=== PATIENT | female | born 1965 | race Caucasian/White ===

== ENCOUNTER 2019-05-23 12:11 | Inpatient (IN) | payer BC, OTHER ==
[~2019-05-23] VITALS: Ht 172.7 cm; Wt 98.9 kg
--- NOTE | ~2019-05-23 | HEMODYNAMI ---
PATIENT:PADMINI CHAVEZ MEDICAL RECORD: [id number] : 67 [id number] ADMISSION DATE: 05/23/19 Generatedon:05/24/201910:25 Patient name: PADMINI CAHVEZ Patient #: [id number] SSN: [id number] : 1965 Date of study: 05/24/2019 Page: Of Hemodynamic Procedure Report Patient Data Patient Demographics Procedure consent was obtained First Name: PADMINI Gender: Female Last Name: KATHY : 1965 Middle Initial: ALPHONSE Age: 53 year(s) Patient #: [id number] Race: SSN: [id number] Additional ID: [id number] Contact details Address: [address] [place] [address] [place] State: [place] [facility] [place]: [address] Past Medical History Allergies Allergen Reaction Date Comments Reported Other allergy 05/24/2019 jaimeen/bernie Admission Admission Data Admission Date: 05/23/2019 Admission Time: 19:04 Arrival Date: 05/24/2019 Arrival Time: 0:00 Admit Source: Other Insurance Payor: Private Room #: D.2137 health insurance [facility] #: [id number] Height (in.): 68.11 BSA: 2.12 (m2) Height (cm.): 173 BMI: 33.11 (kg/m2) Weight (lbs.): 218.46 Weight (kg.): 99.09 Lab Results Lab Result Date: 05/24/2019 Lab Result Time: 0:00 Biochemistry Name Units Result Min Max BUN mg/dl 17 --(---*)-- 7 18 Creatinine mg/dl 0.8 --(-*--)-- 0.6 1.3 eGFR ml/min 79.02208 *-(----)-- 90 120 NONAFRICAN CBC Name Units Result Min Max Hematocrit % 49 --(--*-)-- 42 54 Hemoglobin g/dl 16.7 --(---*)-- 13.5 17.5 Procedure Procedure Types Cath Procedure Diagnostic Procedure C [facility] w/Coronaries Procedure Description Procedure Date Procedure Date: 05/24/2019 Procedure Start Time: 10:04 Procedure End Time: 10:23 Procedure Staff Name Function Jasson Abreu MD Performing Physician Gabriela Middleton RT Monitor Lizeth Zarate RT Scrub Nolberto Angel RN Nurse Procedure Data Cath Procedure Fluoroscopy Diagnostic fluoroscopy Total fluoroscopy Time: 0 time: 0 min min Diagnostic fluoroscopy Total fluoroscopy dose: 547 dose: 547 mGy mGy Contrast Material Contrast Material Type Amount (ml) Isovue 300 81 Entry Location Entry Primary Successful Side Size Upsize Upsize Entry Closure Succes sful Closure Location (Fr) 1 (Fr) 2 (Fr) Remarks Device Remarks Femoral Right 5 Fr Exoseal artery Estimated blood loss: 5 ml Diagnostic catheters Device Type Used For End Catheter Placement MULTIPACK JL 4.0 5Fr Left Coronary catheter Angiography MULTIPACK 3DRC 5Fr Right Coronary catheter Angiography DIAGNOSTIC AR MOD 5Fr Procedure Catheter ([id number]) MULTIPACK Pigtail 5 Fr LV Angiography catheter Procedure Complications No complications Procedure Medications Medication Administration Route Dosage 0.9% NaCl I.V. 100 ml/hr Oxygen etCO2 Nasal cannula 2 l/min Heparin Flush Bag added to field 2 bags (1000units/500ml NS) Lidocaine 2% added to field 20 Benadryl I.V. 50 mg Versed I.V. 2 mg Fentanyl I.V. 100 mcg Hemodynamics Rest BSA: 2.12 (m2) HGB: 16.7 (g/dl) O2 Consumption: Estimated: 231.81 (ml/min) O2 Co nsumption indexed: Estimated:109.34 (ml/min/m) Heart Rate: 102 (bpm) Pressure Samples Time Site Value (mmHg) Purpose Heart Use Rate(bpm) 10:12 LV 139/19,19 Snapshot 102 10:12 AO 144/81(107) Pullback 102 10:12 LV 127/21,13 Pullback 102 Gradients Valve Time Site 1 Site 2 Mean SEP/DFP Peak To Heart Use (mmHg) (sec/min) Peak Rate (mmHg) (bpm) Aortic 10:12 LV AO 0 15 0 102 127/21,13 144/81(107) Calculations Valve P-P Mean Valve Index Valve Source Name Gradient Area Flow (cm2) Aortic 0 0 0 0 Snapshots Pre Cath Intra NCS Post Cath Vital Signs Time Heart Resp SPO2 etCO2 NIBP (mmHg) Rhythm Pain Sedation Rate (ipm) (%) (mmHg) Status Level (bpm) 9:57:37 99 23 91 0 164/94(135) NSR 0 (11) 10(A) , No pain 10:02:02 104 25 93 22.5 146/102(129) NSR 0 (11) 10(A) , No pain 10:06:20 98 22 94 27 156/85(115) NSR 0 (11) 9(A) , No pain 10:10:34 102 18 92 27 150/96(120) NSR 0 (11) 9(A) , No pain 10:21:39 91 30 149/93(134) NSR 0 (11) 9(A) , No pain Medications Time Medication Route Dose Verified Delivered Reason Notes Eff ectiveness by by 10:03:03 0.9% NaCl I.V. 100 Nolberto Nolberto Per ml/hr Jeanne Angel physician RN RN 10:04:01 Oxygen etCO2 2 Nolberto Nolberto for low 02 Nasal l/min Lorigan Lorigan sats cannula RN RN 10:04:11 Heparin Flush added 2 Nolberto Nolberto used for Bag to bags Lorigan Jeanne procedure (1000units/500ml RN RN NS) 10:04:20 Lidocaine 2% added 20ml Nolberto Nolberto for local to vial Lorigan Lorigan anesthetic field RN RN 10:04:31 Benadryl I.V. 50 mg Nolberto Nolberto Per Jeanne Angel physician RN RN 10:04:50 Versed I.V. 2 mg Nolberto Nolberto for Lorigan Lorigan sedation RN RN 10:05:36 Fentanyl I.V. 100 Nolberto Nolberto for mcg Lorigan Lorigan sedation RN shell reprint operator Log Time Note 9:27:23 Informed consent obtained and on chart 9:27:43 Nolberto Angel RN sent for patient. Start room use. 9:27:45 Procedure Status Elective Heart Cath (OP). 9:27:47 Time tracking: Regular hours (M-F 7:00 - 5:00) 9:27:51 Plan of Care:Hemodynamics will remain stable., Cardiac rhythm will remain stable., Comfort level will be maintained., Respiratory function will remain adequate., Patient/ family verbilizes understanding of procedure., Procedure tolerated without complication., Recovers from procedure without complications.. 9:30:08 Arrival Date: 05/24/2019 12:00:00 AM 9:30:11 Admit Source: Other 9:30:15 Insurance Payor : Private health insurance 9:30:46 Patient Height : 68.11 inches 9:30:51 Patient Weight : 218.46 lbs 9::46 Lab Result : Hemoglobin 16.7 g/dl 9::46 Lab Result : eGFR NONAFRICAN 79.76753 ml/min 9::46 Lab Result : BUN 17 mg/dl 9::46 Lab Result : Creatinine 0.8 mg/dl ::46 Lab Result : Hematocrit 49 % 9:32:53 Procedure type changed to Cath procedure, Diagnostic procedure, LHC, LH C w/Coronaries 9:32:56 Diagnostic Cath Status : Elective 9:38:34 Lab results completed and on chart. 9:39:32 Patient received from Med II to CCL 1 Alert and oriented. Tansferred to table in Supine position. 9:39:35 Warm blankets applied, and mac hugger turned on for patient comfort. 9:39:36 Correct patient and procedure confirmed by team. 9:39:38 ECG and BP/O2 sat monitors applied to patient. 9:56:23 Vital chart was started 9:56:24 Baseline sample Acquired. 9:56:31 Rhythm: sinus tachycardia 9:56:38 Full Disclosure recording started 9:56:39 - 9:57:19 H&P Date Dictated: 05/24/2019 Within 30 days and on chart.. 9:57:21 Pre-procedure instructions explained to patient. 9:57:22 Pre-op teaching completed and patient verbalized understanding. 9:57:26 Family in patients room. 9:57:30 Patient NPO since Midnight. 9:57:50 Patient allergic to Other allergypcn/codiene 9:58:58 Is the patient allergic to Iodine/contrast media? No. 9:59:09 Is patient on blood thinner?No 9:59:11 Patient diabetic? No. 10:00:22 ----Pre-sedation anethsthesia assessment.---- 10:00:29 Previous problem with sedation/anesthesia? No ? 10:00:32 Snore? Yes 10:00:34 Sleep apnea? Yes 10:00:36 Deviated septum? No 10:00:38 Opens mouth fully? Yes 10:00:42 Sticks out tongue? Yes 10:01:07 Airway obstruction? Yes copd/wears a cpap at home 10:01:20 Dentures? No ? 10:01:28 Pre procedure: right dorsailis pedis pulse 2+ Normal; easily identifiable; not easily obliterated 10:01:45 Patient pain scale 5/10 ?. 10:01:57 IV patent on arrival in subclavian with 0.9% NaCl at [facility]. 10:02:11 Right groin area was prepped with chlora-prep and draped in sterile fashion 10:02:14 Alarms reviewed by R. N. 10:02:15 Sharps counted by scrub and verified by R.N. 10:02:18 Physician arrived 10:02:20 --------ALL STOP TIME OUT------ 10:02:23 Zero performed for pressure channel P1 10:03:03 0.9% NaCl 100 ml/hr I.V. was administered by Nolberto Angel RN; Per physician; Verbal order read back and verified. 10:03:25 Final Timeout: patient, procedure, and site verified with staff and physician. All members of the team are in agreement. 10:03:28 Right groin site verified by team. 10:03:34 Fire Safety Assessment: A--An alcohol-based skin anteseptic being used preoperatively., C--Open oxygen or nitrous oxide is being used., D--An ESU, laser, or fiber-optic light is being used. 10:03:40 Physical assessment completed. ASA score P 2 - A patient with mild systemic disease as per Jasson Abreu MD. 10:03:57 1) 90+ Normal kidney functon but urine findings or structural abnormalities or genetic trait point to kidney disease. 10:04:01 Oxygen 2 l/min etCO2 Nasal cannula was administered by Nolberto Angel RN; for low 02 sats; Verbal order read back and verified. 10:04:03 Maximum allowable contrast dose (3.7 X eGFR X 0.75)225 ml. 10:04:11 Heparin Flush Bag (1000units/500ml NS) 2 bags added to field was administered by Nolberto Angel RN; used for procedure; Verbal order read back and verified. 10:04:11 Sedation plan: IV Moderate Sedation Medication:Versed, Fentanyl 10:04:20 Lidocaine 2% 20ml vial added to field was administered by Nolberto Angel RN; for local anesthetic; Verbal order read back and verified. 10:04:21 Use device set Femoral Dx 10:04:23 ACIST Syringe (84554) opened to sterile field. 10:04:24 Bag Decanter (2002S) opened to sterile field. 10:04:25 Medline Cath Pack ([id number]) opened to sterile field. 10:04:26 ACIST Hand Control (26693) opened to sterile field. 10:04:28 ACIST Manifold (75229) opened to sterile field. 10:04:29 DIAGNOSTIC Multipack 5Fr catheter set (WC5621) opened to sterile field. 10:04:30 Tegaderm 4 x 4 (1626W) opened to sterile field. 10:04:31 Benadryl 50 mg I.V. was administered by Nolberto Angel RN; Per physician; Verbal order read back and verified. 10:04:31 SHEATH 5FR York (XYG488) opened to sterile field. 10:04:32 EMERALD Guide Wire (495-560) opened to sterile field. 10:04:41 Procedure started. 10:04:49 Local anesthetic to right femoral artery with Lidocaine 2% by Jasson Hilton MD.INITIAL ACCESS ONLY 10:04:50 Versed 2 mg I.V. was administered by Nolberto Angel RN; for sedation; Verbal order read back and verified. 10:05:36 Fentanyl 100 mcg I.V. was administered by Nolberto Angel RN; for sedation; Verbal order read back and verified. 10:05:49 A 5 Fr sheath was inserted into the Right Femoral artery 10:06:30 A MULTIPACK JL 4.0 5Fr catheter was advanced over the wire and used for Left Coronary Angiography. 10:06:37 LCA angiography performed. 10:06:44 Injector settings: Ml/sec: 3, Volume: 6, 10:07:33 Catheter removed. 10:08:04 A MULTIPACK 3DRC 5Fr catheter was advanced over the wire and used for Right Coronary Angiography. 10:09:34 Catheter removed. 10:10:03 A DIAGNOSTIC AR MOD 5Fr Catheter (392222M) was advanced over the wire and used for Procedure. 10:10:48 RCA angiography performed. 10:10:52 Injector settings: Ml/sec: 3, Volume: 6, 10:10:59 Catheter removed. 10:11:07 A MULTIPACK Pigtail 5 Fr catheter was advanced over the wire and used for LV Angiography. 10:11:17 LV gram done using LEONE 10:12:15 LV hemodynamics recorded. 10:12:26 EF : 20 % 10:12:35 Catheter removed. 10:12:43 EXOSEAL 5Fr (EX500) opened to sterile field. 10:13:09 Sheath removed intact; hemostasis achieved with Exoseal to the Right Femoral artery. 10:13:47 Procedure ended.(Physican Out) 10:14:05 Contrast amount:Isovue 300 81ml. 10:14:08 Maximum allowable dose exceeded? No. 10:15:56 Fluoroscopy time 00.00 minutes. 10:16:03 Fluoroscopy dose: 547 mGy 10:16:03 Flurop Dose total: 547 10:16:13 Dose Area Product 25088 mGy/cm. 10:16:28 Sharps counted by scrub and verified by R.N. 10:16:32 Insertion/operative site no bleeding no hematoma. 10:16:38 Post-op/insertion site Right Femoral artery dressed using a 4 x 4 and Tegaderm. 10:16:44 Post right femoral artery:stable 10:16:49 Post Procedure Pulses reassessed and unchanged 10:17:07 Post-procedure physical assessment completed. ASA score P 2 - A patient with mild systemic disease as per Jasson Abreu MD. 10:17:15 Post procedure rhythm: unchanged. 10:17:20 Estimated blood loss: 5 ml 10:17:22 Post procedure instruction explained to patient.Patient verbalizes understanding. 10:17:24 Patient needs reinforcement of post procedure teaching. 10:17:50 Procedure and supply charges have been captured, reviewed, submitted an d are correct. 10:22:23 Risk of Mortality: 0.2 10:22:27 Risk of blood transfusion: 0.6 10:22:32 Risk of ALDO: 0.8 10:22:52 Procedure Complication : No complications 10:22:57 Vital chart was stopped 10:23:06 [facility] Findings: mild to moderate CAD (<70%) 10:23:09 Operative report dictated upon procedure completion. 10:23:12 See physician's report for complete and final results. 10:23:25 Report given to [facility] II. 10:23:31 Patient transfered to Med II with Bed. 10:23:36 Procedure ended. 10:23:36 Full Disclosure recording stopped 10:23:40 End room use (Document Last) Device Usage Item Name Manufacture Quantity Catalog Hospital Part Current Minimal L ot# / Number Charge Number Stock Stock Serial# Code ACIST Acist 1 30526 [id number] 431072 184776 20 Syringe Medical (07863) Systems Inc Bag Microtek 1 2001S 686784 04444 709278 5 Decanter Medical Inc. () Medline Medline 1 [id number] 320984 37313 150316 5 Cath Pack ([id number]) ACIST Hand Acist 1 86581 798396 653595 023305 5 Control Medical (07861) Systems Inc ACIST Acist 1 72950 894182 405503 075716 5 Manifold Medical (50834) Systems Inc DIAGNOSTIC Cardinal 1 EE0396 829012 86989 242691 30 Multipack Health 5Fr catheter set (MB8808) Tegaderm 4 3M 1 1626W 170470 210134 647121 5 x 4 (1626W) SHEATH 5FR Terumo 1 QBV713 841969 666716 890787 5 York (WJK138) EMERALD Cardinal 1 502-455 851748 930537 620237 5 Guide Wire [facility] (502455) MULTIPACK Cardinal 1 064408 5 JL 4.0 5Fr Health catheter MULTIPACK Cardinal 1 936656 5 3DRC 5Fr Health catheter DIAGNOSTIC Cardinal 1 [id number] 321433 556627 599290 15 AR MOD 5Fr Health Catheter (510829M) MULTIPACK Cardinal 1 947799 5 Pigtail 5 Health Fr catheter EXOSEAL 5Fr Cardinal 1 EX500 139892 066542 454466 10 (EX500) Health Signature Audit Lynn Stage Time Signature Unsigned Intra-Procedure 05/24/2019 Gabriela 10:24:24 AM Kane RT(R) (CV) Intra-Procedure 05/24/2019 Nolberto 10:24:56 AM Jeanne MACHADO Intra-Procedure 05/24/2019 Jasson Blanco 10:25:54 AM Yobani [place]OWN [place] [id number] [place] [id number]
[2019-05-23] MEDS ORDERED: ALDACTONE25 MG PO (12:32)
[2019-05-23] MEDS ORDERED: HYDROCHLOROTHIA25 MG PO (12:32)
[2019-05-23] MEDS ORDERED: COREG 3.1253.125 MG PO (12:33)
[2019-05-23] MEDS ORDERED: ALBUTEROL SULF8.5 GM (12:34)
[2019-05-23] MEDS ORDERED: ADVAIR HFA 45/212 GM INH (12:34)
[2019-05-23 13:09] LABS: BASOPHILS 0.3 % (0-2); EOSINOPHILS 2.9 % (0-7); HEMATOCRIT 50.5 % (36.0-48.0); HEMOGLOBIN 17.4 g/dL (12-16); IMMATURE GRANULOCYTES 0.5 % (0-5); LYMPHOCYTES 20.1 % (15-50); MCH 33.3 pg (26.0-34.0); MCHC 34.5 g/dL (31.0-37.0); MCV 96.6 fL (80.0-100.0); MEAN PLATELET VOLUME 10.6 fL (7.4-10.4); MONOCYTES 5.7 % (2-11); NEUTROPHILS 70.5 % (40-80); PLATELET COUNT 181 10x3/uL (130-400); RBC 5.23 10x6/uL (4.00-5.40); RDW 13.2 % (11.5-14.5); WBC 14.8 10x3/uL (4.8-10.8)
[2019-05-23 13:22] LABS: CALC OSMOLALITY 272 mosm/kg (275-300); CALCIUM 8.5 mg/dL (8.5-10.1); CARBON DIOXIDE 24.4 mmol/L (21.0-32.0); CHLORIDE - SERUM 102 mmol/L (98-107); CREATININE - SERUM 0.5 mg/dL (0.6-1.3); GLUCOSE 139 mg/dL (74-106); POTASSIUM - SERUM 3.5 mmol/L (3.5-5.1); SODIUM 136 mmol/L (136-145); UREA NITROGEN 11 mg/dL (7-18); eGFR NON AFRICAN AMERICAN > 90 mL/min (90-120)
[2019-05-23 13:37] LABS: ALBUMIN 2.9 g/dL (3.4-5.0); ALKALINE PHOSPHATASE 100 U/L (46-116); ALT (SGPT) 34 U/L (10-68); APTT 25.8 SECONDS (22.8-39.4); BILIRUBIN - TOTAL 1.47 mg/dL (0.2-1.3); INR 1.03 (0.85-1.17); LIPASE 74 U/L (73-393); MAGNESIUM - SERUM 1.8 mg/dL (1.8-2.4); PRO BNP 23821 pg/mL (0-125); PROTEIN - SERUM 7.6 g/dL (6.4-8.2)
[2019-05-23 13:39] LABS: D-DIMER-QUANTITATIVE 3.19 ug/mLFEU (0.20-0.54)
[2019-05-23 13:42] LABS: TROPONIN-I 0.071 ng/mL (0.000-0.060)
--- NOTE | 2019-05-23 13:42 | NUR ---
CRITICAL LAB TROPONIN 0.071; PRBNP [id number] FROM ABDELRAHMAN
--- NOTE | 2019-05-23 16:10 | NUR ---
EDP DIPIKA AT BEDSIDE ATTEMPTING TO START IV.
[2019-05-23 16:11] VITALS: BP 176/127
--- NOTE | 2019-05-23 16:12 | NUR ---
PT PROVIDED WITH SANDWICH TRAY AND WATER.
--- NOTE | 2019-05-23 16:57 | NUR ---
PT'S DAUGHTER, LARRY DUARTE, PHONE NUMBER [phone]
--- NOTE | 2019-05-23 17:08 | NUR ---
DR. AVALOS AT BEDSIDE FOR CENTRAL LINE PLACEMENT.
--- NOTE | 2019-05-23 17:15 | NUR ---
CENTRAL LINE IN PLACE BY DR AVALOS. ALCOHOL CAPS IN PLACE X3, ALL LUMENS CLAMPED. AREA AROUND DRESSING CLEANED. PT TOLERATED WELL.
[2019-05-23 18:06] VITALS: BP 180/123
[2019-05-23 18:11] LABS: ERYTHROCYTE SEDIMENTATION RATE 15 mm/hr (0-30)
[2019-05-23 19:46] LABS: APPEARANCE CLEAR (CLEAR); COLOR YELLOW (YELLOW)
[2019-05-23 19:47] LABS: BILIRUBIN NEGATIVE (NEGATIVE); GLUCOSE NEGATIVE (NEGATIVE); KETONE NEGATIVE (NEGATIVE); NITRITE NEGATIVE (NEGATIVE); PROTEIN 1+ mg/dL (NEGATIVE); SPECIFIC GRAVITY 1.005 (1.005-1.020); UROBILINOGEN NORMAL (NORMAL)
[2019-05-23 19:55] LABS: UDS - AMPHET POSITIVE QUAL (NEGATIVE); UDS - BARB NEGATIVE QUAL (NEGATIVE); UDS - BENZO NEGATIVE QUAL (NEGATIVE); UDS - COCAINE NEGATIVE QUAL (NEGATIVE); UDS - OPIATE POSITIVE QUAL (NEGATIVE); UDS - PCP NEGATIVE QUAL (NEGATIVE); UDS - THC POSITIVE QUAL (NEGATIVE)
--- NOTE | 2019-05-23 20:08 | NUR ---
PATIENT RECEIVED TO ROOM 2137 @ 1900 VIA STRETCHER. PATIENT IS AAOX4, VSS. QUICK START, MED REC, ADULT HX COMPLETE. U/A COLLECTED AND SENT TO LAB. CL IN REACH, BED LOCKED AND LOWERED. WILL CTM.
[2019-05-23 22:06] VITALS: BP 194/103; BMI 33.2
--- NOTE | 2019-05-23 22:14 | NUR ---
JOURNEYMAN PAINTER ASSESSMENT COMPLETED. PT STATES HAVING CP /. O2 2LNC PLACED. LTLSC SL. LUNGS DIMINISHED IN BASES BILAT WITH COARSE RHONCHI NOTED TO UPPER LOBES. ALERT AND ORIENTED TO PERSON, PLACE ANDTIME. HOLGUIN. SR PER CM HR 94. CALL LIGHT WITHIN REACH. PT'S NURSE INFOMRED OF C/O CP.
[2019-05-24] VITALS: BP 160/93
--- NOTE | 2019-05-24 01:46 | NUR ---
PT C/O PAIN /10, PRN MORPHINE ADMINISTERED PER ORDERS.
[2019-05-24 04:00] VITALS: BP 189/117
--- NOTE | 2019-05-24 04:44 | NUR ---
PATIENT BP 189/117 HR 110, PRN APRESOLINE ADMINISTERED PER ORDERS. WILL CTM.
[2019-05-24 05:50] VITALS: BP 189/92
[2019-05-24 05:52] LABS: BASOPHILS 0.3 % (0-2); EOSINOPHILS 2.8 % (0-7); HEMOGLOBIN 16.7 g/dL (12-16); IMMATURE GRANULOCYTES 0.3 % (0-5); LYMPHOCYTES 21.1 % (15-50); MCH 32.9 pg (26.0-34.0); MCHC 34.1 g/dL (31.0-37.0); MCV 96.6 fL (80.0-100.0); MEAN PLATELET VOLUME 11.1 fL (7.4-10.4); MONOCYTES 8.8 % (2-11); NEUTROPHILS 66.7 % (40-80); PLATELET COUNT 180 10x3/uL (130-400); RBC 5.07 10x6/uL (4.00-5.40); RDW 13.5 % (11.5-14.5); WBC 14.8 10x3/uL (4.8-10.8)
[2019-05-24 06:22] LABS: ALBUMIN 2.7 g/dL (3.4-5.0); ALKALINE PHOSPHATASE 92 U/L (46-116); ALT (SGPT) 34 U/L (10-68); BILIRUBIN - TOTAL 1.57 mg/dL (0.2-1.3); CALCIUM 9.2 mg/dL (8.5-10.1); CARBON DIOXIDE 27.3 mmol/L (21.0-32.0); CHLORIDE - SERUM 99 mmol/L (98-107); GLUCOSE 121 mg/dL (74-106); POTASSIUM - SERUM 3.8 mmol/L (3.5-5.1); PRO BNP 21817 pg/mL (0-125); PROTEIN - SERUM 7.1 g/dL (6.4-8.2); SODIUM 135 mmol/L (136-145); eGFR NON AFRICAN AMERICAN 80 mL/min (90-120)
[2019-05-24 06:24] LABS: CALC OSMOLALITY 272 mosm/kg (275-300); CREATININE - SERUM 0.8 mg/dL (0.6-1.3); UREA NITROGEN 17 mg/dL (7-18)
--- NOTE | 2019-05-24 08:20 | NUR ---
PT AWAKE, AXO. RR EVEN AND UNLABORED. STANDBY ASSIST TO RESTROOM. DENIES NEEDS OR PAIN AT THIS TIME. BED IN LOWEST POSITION. CALL LIGHT WITHIN REACH. WILL CONTINUE TO MONITOR.
[2019-05-24 08:27] VITALS: BP 136/59
[2019-05-24 09:20] LABS: LDL-HDL RATIO 1.7 ratio (1.5-3.5)
--- NOTE | 2019-05-24 09:33 | NUR ---
PT LEFT FOR CONCAVER VIA BED.
--- NOTE | 2019-05-24 10:35 | NUR ---
PT BACK FROM SCALE AND SKIP CAR OPERATOR. DRESSING TO RIGHT GROIN, CDI. PT SLEEPING, RR EVEN AND UNLABORED. VSS AT THIS TIME. FAMILY MEMEBER PRESENT. EDUCATION ON POST OP PRECEDURES GIVEN. WILL CONTINUE TO MONITOR.
[2019-05-24 15:11] VITALS: BMI 33.1
--- NOTE | 2019-05-24 17:04 | MORECARE ---
CASE MANAGEMENT DISCHARGE SUMMARY PATIENT: PADMINI CHAVEZ UNIT: [id number] ADM DATE: 05/23/19 AGE: 53 : 67 SEX: F ROOM/BED: D.7976 AUTHOR: MORALES EDMONDS PHYSICIAN: REFERRING PHYSICIAN: EZEKIEL RUIZ MD DATE OF SERVICE: 05/24/19 Discharge Plan Patient Name: PADMINI CHAVEZ Facility: [facility]:[place] : 1965 Planned Disposition: Home Anticipated Discharge Date: 05/24/19 Discharge Date: Expected LOS: 1 Initial Reviewer: [email or web address] Initial Review Date: 05/24/2019 Generated: 05/24/19 6:03 pm DCPIA - Discharge Planning Initial Assessment Updated by [email or web address]: Nikolai Eugene on 05/24/19 5:01 pm * Is the patient Alert and Oriented? Yes * How many steps to enter\exit or inside your home? * PCP DR. ROXANA RAMEY IN [place], [place] * Pharmacy [facility][1] * Preadmission Environment Home with Family * ADLs Independent * Equipment CPAP Nebulizer Other * Other Equipment PNEUMATIC LEG COMPRESSION DEVICE NO MEDICAL EQUIPMENT PROVIDER PREFERENCE * List name and contact numbers for known caregivers / representatives who currently or will assist patient after discharge: LARRY DUARTE, DTR,[phone] * Verbal permission to speak to the caregivers and representatives has been obtained from the patient. N/A * Community resources currently utilized Home Health * Please name any agencies selected above. [facility], IN [place] - FOR ASSISTANCE WITH LEG COMPRESSION * Additional services required to return to the preadmission environment? No * Can the patient safely return to the preadmission environment? Yes * Has this patient been hospitalized within the prior 30 days at any hospital? No Patient Name: PADMINI CHAVEZ Page 77520 at 1704 All edits/amendments must be made on the electronic document DICTATION DATE: 05/24/191703 SPARERIBS TRIMMER: RENETTA 05/24/191703 RPT#: [id number] DC DATE: STATUS: ADM IN [facility] [address] [place] [address] END OF REPORT
--- NOTE | 2019-05-24 17:12 | MORECARE ---
CASE MANAGEMENT DISCHARGE SUMMARY PATIENT: PADMINI CHAVEZ UNIT: [id number] ADM DATE: 05/23/19 AGE: 53 : 67 SEX: F ROOM/BED: D.7966 AUTHOR: GREY,DOC PHYSICIAN: REFERRING PHYSICIAN: EZEKIEL RUIZ MD DATE OF SERVICE: 05/24/19 Discharge Plan Patient Name: PADMINI CHAVEZ Facility: [facility]:[place] : 1965 Planned Disposition: Home Anticipated Discharge Date: 05/24/19 Discharge Date: Expected LOS: 1 Initial Reviewer: [email or web address] Initial Review Date: 05/24/2019 Generated: 05/24/19 6:11 pm Comments DCP- Discharge Planning Updated by [email or web address]: Nikolai Eugene on 05/24/19 4:[address] Patient Name: PADMINI CHAVEZ Admission Status: ER Accout number: [id number] Admission Date: 05-23-2019 : 1965 Admission Diagnosis: Attending: EZEKIEL RUIZ Current LOS: 1 Anticipated DC Date: 05-24-2019 Planned Disposition: Home Primary Insurance: [employer] OUT OF STATE Discharge Planning Comments: CM MET WITH PT IN ROOM TO DISCUSS DISCHARGE PLANNING AND NEEDS. PT REPORTS LIVING AT HOME INDEPENDENTLY WITH HER MOTHER IN [place]. PT HAD BOUGHT PLANE TICKETS IN [place] TO COME AND VISIT HER DAUGHTER; PT HAD RECEIVED CALL FROM DOCTOR TELLING HER SHE HAD A BLOOD CLOT IN HER LUNG AND NEEDED TO NOT TRAVEL AND GO TO NEAREST EMERGENCY ROOM. PT LEFT ANYWAY; PT STATES THAT HER DOCTOR WAS TRYING TO GET THE POLICE TO TAKE A 72 HOUR HOLD BEFORE SHE LEFT BUT IT WAS TOO LATE. PT TOLD HER MOTHER SHE WOULD GO TO THE HOSPITAL HERE AND THAT IS WHAT SHE DID. PT HASNEBULIZER, CPAP AND PNEUMATIC LEG COMPRESSION DEVICE. PT HAS HOME HEALTH IN [place] FOR LEG COMPRESSION THERAPY. PT DENIES DISCHARGE NEEDS, REPORTS HER DAUGHTER WILL PICK HER UP FOR DISCHARGE HOME. PT WILL BE STAYING WITH HER DAUGHTER UNTIL 06-02-19 AND WILL FLY HOME THEN. CM TO CONTINUE TO FOLLOW AND ASSIST NEEDED. Flower Shop Laborer/Designer: Nikolai Eugene DCPIA - Discharge Planning Initial Assessment Updated by [email or web address]: Nikolai Eugene on 05/24/19 5:01 pm * Is the patient Alert and Oriented? Yes * How many steps to enter\exit or inside your home? * PCP DR. ROXANA RAMEY IN [place], [place] * Pharmacy [facility] * Preadmission Environment Home with Family * ADLs Independent * Equipment CPAP Nebulizer Other * Other Equipment PNEUMATIC LEG COMPRESSION DEVICE NO MEDICAL EQUIPMENT PROVIDER PREFERENCE * List name and contact numbers for known caregivers / representatives who currently or will assist patient after discharge: LARRY DUARTE, LORELEI,[phone] * Verbal permission to speak to the caregivers and representatives has been obtained from the patient. N/A * Community resources currently utilized Home Health * Please name any agencies selected above. [facility], IN [place] - FOR ASSISTANCE WITH LEG COMPRESSION * Additional services required to return to the preadmission environment? No * Can the patient safely return to the preadmission environment? Yes * Has this patient been hospitalized within the prior 30 days at any hospital? No Last DP export: 05/24/19 4:04 Patient Name: PADMINI CHAVEZ Page 54922 at 1712 All edits/amendments must be made on the electronic document DICTATION DATE: 05/24/191710 INSPECTOR PURCHASED PARTS: RENETTA 05/24/191710 RPT#: [id number] DC DATE: STATUS: ADM IN [facility] [address] [place] [address] END OF REPORT
--- NOTE | 2019-05-24 18:31 | NUR ---
I CONCUR WITH THE PRODUCT DISTRIBUTION SPECIALIST ASSMESSMENT OF THIS PATIENT .
--- NOTE | 2019-05-24 19:15 | NUR ---
PT ASKS FOR PAIN MED LCTA SKIN WARM AND DRY SKIN SEEMS FLUSHED SR X2 BED IS LOW AND LOCKED CALL LIGHT IS IN REACH
[2019-05-24 20:00] VITALS: BP 106/85
[2019-05-25] VITALS: BP 163/55
[2019-05-25 04:00] VITALS: BP 142/62
[2019-05-25 05:54] LABS: BASOPHILS 0.2 % (0-2); HEMATOCRIT 49.7 % (36.0-48.0); HEMOGLOBIN 16.7 g/dL (12-16); IMMATURE GRANULOCYTES 0.4 % (0-5); LYMPHOCYTES 24.4 % (15-50); MCH 32.9 pg (26.0-34.0); MCHC 33.6 g/dL (31.0-37.0); MEAN PLATELET VOLUME 10.2 fL (7.4-10.4); MONOCYTES 8.7 % (2-11); NEUTROPHILS 64.3 % (40-80); PLATELET COUNT 157 10x3/uL (130-400); RBC 5.07 10x6/uL (4.00-5.40); RDW 13.6 % (11.5-14.5); WBC 16.8 10x3/uL (4.8-10.8)
[2019-05-25 06:54] LABS: ALBUMIN 2.3 g/dL (3.4-5.0); ANION GAP 7.1 mmol/L (8-16); BILIRUBIN - TOTAL 1.28 mg/dL (0.2-1.3); CALCIUM 8.1 mg/dL (8.5-10.1); MAGNESIUM - SERUM 1.9 mg/dL (1.8-2.4); PROTEIN - SERUM 6.7 g/dL (6.4-8.2)
[2019-05-25 06:55] LABS: POTASSIUM - SERUM 3.1 mmol/L (3.5-5.1)
--- NOTE | 2019-05-25 07:00 | NUR ---
RECIEVED REPORT. ASSUMED CARE OF PATIENT. PATIETN LYING IN BED WITH EYES OPEN. PATIENT WANTING TO KNOW WHY SHE IS STILL HERE, SHE WANTS TO LEAVE, SHE IS ONLY HERE FOR ONE WEEK TO SEE HER GRANDKIDS AND BEING IN THE HOSPITAL IS MESSING UP HER VACATION TIME. INFORMED PATIENT THIS MENTAL HEALTH CONSULTANT WOULD REVIEW CHART AND SEE HOW CLOSE WE ARE TO DISCHARGING PATIENT. PATIENT STATING SHE WILL LEAVE REGARDLESS. ENCOURAGED PATIENT TO STAY AND GIVE THIS MENTAL HEALTH CONSULTANT TIME TO LOOK AND TRY TO FIGURE OUT WHAT ALL TEST STILL NEED TO BE COMPLETED. PATIENT VERY SHORT TEMPERTED, ANGRY AT BEING HERE. CALL LIGHT WITHIN REACH. NO DISTRESS.
--- NOTE | 2019-05-25 07:55 | NUR ---
MEDICATED FOR PAIN. PATIENT LEAVING UNIT AT THIS TIME FOR CTA OF CHEST. NO DISTRESS.
--- NOTE | 2019-05-25 08:38 | NUR ---
PATIENT RETURNED FROM CTA OF CHEST AT 0820, CTA NEGATIVE.
--- NOTE | 2019-05-25 09:36 | NUR ---
ELECTROLYTE PROTOCOL INITIATED.
--- NOTE | 2019-05-25 09:52 | NUR ---
PATIENTS DAUGHTER HERE AND IS ON HER WAY TO WORK. SHE GETS OFF AT 1500 THIS AFTERNOON AND IF HER MOTHER IS NOT DISCHARGED SHE WOULD LIKE FOR HER TO GO AMA. PATIENT IS WILLING TO WAIT UNTIL 1500. EXPLAINED TO PATIENT THAT IF SHE GOES AMA, MEDICATIONS WILL NOT BE CALLED OVER FOR HER, INSURANCE WILL NOT PAY. PATIENT AND DAUGHTER STATE THAT IF SHE DOES NOT HAVE CLOT, SHE IS NOT SICK ENOUGH TO STAY HERE AND SHE IS ONLY HERE FOR ONE WEEK FROM [place]. THE DAUGHTER STATES THAT SHE KNOWS IT SOUNDS BAD BUT HER MOTHER IS NOT DYING, SHE HAS NOT CLOT, SHE IS A SINGLE MOTHER, AND DOES NOT HAVE TIME TO KEEP COMING UP HERE WHEN HER MOTHER IS WELL ENOUGH TO BE AT HER HOUSE. THE PATIENTS DAUGHTER STATES THAT HER MOM IS GOING BACK ON 06/02/19 AND HAS A PRODUCT ASSURANCE ENGINEER IN [place] THAT IS TREATING HER AND WHOM SHE HAS AN APPT WITH 3 DAYS AFTER RETURNING FROM HERE. CASE MANAGEMENT MADE AWARE OF PATIENT LEAVING AT 1500 REGARDLESS OF BEING DISCHARGED OR NOT. THIS FULLING MILL OPERATOR WILL HAVE TO REMOVE LEFT SUBCLAVIAN AT 1430 IN ORDER TO HAVE PATIENT READY TO DISCHARGE. HAVE PAGED TIFF LERMA TO INFORM HER AND NOT RECEIVED A CALL BACK YET.
[2019-05-25 12:05] VITALS: BP 120/75
--- NOTE | 2019-05-25 12:30 | NUR ---
AND BRIANDA LERMA AT BEDSIDE FOR ROUNDS. NO DISTRESS. PATIENT SITTING UP TO CHAIR AT BEDSIDE AT THIS TIME.
--- NOTE | 2019-05-25 13:00 | NUR ---
PATIENT CALLED THIS CONDUIT REAMER OPERATOR TO ROOM. PATIENT REQUESTING PAIN MEDICATION PRIOR TO HAVING CENTRAL LINE PULLED. PATIENT STATES SHE IS STARTING TO HURT ALL OVER. INFORMED PATIENT CENTRAL WILL BE PULLED AT 1430.
--- NOTE | 2019-05-25 13:59 | NUR ---
DISCONTINUE CVL ORDER OBTAINED PATIENT IS DISCHARGING TO HOME.
--- NOTE | 2019-05-25 14:00 | NUR ---
MACHINE LACER RETURNED TO DITCH RIDER.
--- NOTE | 2019-05-25 14:09 | NUR ---
PAGE INTO TIFF LERMA APN FOR DISCHARGE ORDERS MEERA STATES SHE WILL GO AMA AT 1500. AWAITING CALL BACK.
[2019-05-25] MEDS ORDERED: ENTRESTO 24 MG1 EACH PO (14:14)
--- NOTE | 2019-05-25 14:17 | NUR ---
ITRIED AGAIN TO PAGE TIFF LERMA APN WITH STILL NO ANSWER.
--- NOTE | 2019-05-25 14:21 | NUR ---
PATIENT HAS REFUSED A FLU SHOT WHEN ASKED IF SHE WOULD LIKE ONE.
--- NOTE | 2019-05-25 14:30 | NUR ---
LEFT SUBCLAVIAN CVL LINE REMOVED AT THIS TIME. CATHETER TIP INTACT. PRESSURE HELD FOR 20 MINUTES. NO HEMATOMA FORMATION. PRESSURE DRESSING APPLIED AND INSTRUCTED FOR PATIENT TO KEEP DRESSING ON X 24 HOURS AND THEN ABLE TO REMOVE. PATIENT VERBALIZED UNDERSTANDING OF ALL INSTRUCTIONS PROVIDED. PATIENT SITTING UP IN BED AT THIS TIME GETTING DRESSED.
--- NOTE | 2019-05-25 15:00 | NUR ---
DISCHARGE INSTRUCTIONS PROVIDED TO PATIENT AT THIS TIME. PATIENT VERBALIZED UNDERSTANDING OF ALL INSTRUCTIONS PROVIDED AND WILL FOLLOW UP WITH HER PHYSICIANS ONCE SHE RETURNS TO [place].
--- NOTE | 2019-05-25 15:11 | NUR ---
PATIENT LEFT UNIT VIA WHEELCHAIR AT THIS TIME WITH ALL PERSONAL BELONGINGS. PATIENT IN NO DISTRESS UPON LEAVING. PATIENT DISCHARGED TO HOME WITH HER DAUGHTER.
--- NOTE | 2019-05-25 15:17 | EC ---
PATIENT:PADMINI CHAVEZ DATE OF SERVICE: 05/23/19 SEX: F MEDICAL RECORD: [id number] DATE OF : [birth year] LOCATION:D.M2 D.213 AGE OF PATIENT: 53 ADMISSION DATE: 05/23/19 REFERRING PHYSICIAN: INTERPRETING PHYSICIAN: MARKY GUY MD ECHOCARDIOGRAM REPORT ECHO CHARGES 4 ECHO COMPLETE Date: 05/23/19 CLINICAL DIAGNOSIS: SOB ECHOCARDIOGRAPHIC MEASUREMENTS (adult normal given) AC root (d.<3.7cm) 2.5 cm LV Septum d (<1.2 cm> 1.7 cm Valve Excursion 2.0 cm LV Septum (systole) 1.9 cm Left Atria (s.<4.0cm> 4.1 cm LVPW d(<1.2cm) 1.4 cm RV (d.<2.3cm) 3.7 cm LVPW (sytole) 1.5 cm LV diastole(<5.6CM) 6.5 cm MV E-F(>70mm/sec) cm LV systole 6.0 cm LVOT Diameter 2.2 cm MV exc.(>10mm) cm Est.ejection fraction (50-75%) % DOPPLER: LVIT cm/sec A 91 cm/sec E 87 cm/sec LA cm/sec RVSP 17.6 mmHg LVOT 59 cm/sec AOP1/2T m/s Asc. Ao 101 cm/sec RVOT 67 cm/sec RA cm/sec PA 88 cm/sec AV Gradient Peak 4.1 mmHg AV Mean 2.6 mmHg AV Area 2.2 cm MV Gradient Peak 5.9 mmHg MV Mean 3.9 mmHg MV Area cm COMMENTS: Jackhammer Operator: Catalina HELTON Car Top Bolter: 3 Dr. Marin TAPE# PACS Pericardial Effusion N DATE OF SERVICE: Adequate 2D, color flow, spectral Doppler, and M-mode. LVH is present. LV internal dimension is dilated. LV is globally hypokinetic with reduced EF, estimated EF 20%. Aortic valve is tricuspid. No evidence of stenosis by Doppler interrogation. Left atrium minimally dilated at 4.1 cm. Mitral valve is thickened. Mild MR. Right-sided chamber is grossly normal. [id number] TR. TRANSINT:[id number] Voice Confirmation ID: [id number] DOCUMENT ID: [id number] ECHOCARDIOGRAM REPORT [id number] PADMINI CHAVEZ GREGORY A MD at 1517 CC: [id number] DICTATION DATE: 05/24/19 1106 READINESS PARAPROFESSIONAL: 05/24/19 1201 ADM IN [facility] [address] [id number]
--- NOTE | 2019-05-25 15:17 | OP ---
PATIENT NAME: PADMINI CHAVEZ MEDICAL RECORD: [id number] :[birth year] LOCATION:D.M2 D.2137 ADMISSION DATE:05/23/19 SURGEON: MARKY GUY MD DATE OF OPERATION: 05/24/2019 PROCEDURE: Left heart catheterization, selective coronary angiography, right femoral artery approach. CATHETERS: A 5-Sinhala sheath, 5/4 left and right Mode, 5/4 pig. The procedure was well tolerated. The patient was returned to cast[place]. Sheath removed. ExoSeal device placed. FINDINGS: Left ventriculography in 30-degree LEONE view, severe global hypokinesis, reduced EF, estimated EF 20%. CORONARY ANATOMY: LEFT MAIN: Left main is free of disease. LAD: Free of disease in the diagonal system. CIRCUMFLEX: Free of disease in the marginal system. RIGHT CORONARY ARTERY: Dominant artery, gives rise to PDA, free of disease. IMPRESSION: Nonischemic cardiomyopathy. The patient previously on carvedilol and Aldactone. At this point in time, we will start Entresto given class 3-4 symptomology. Further recommendations based on the above. TRANSINT:[id number] Voice Confirmation ID: [id number] DOCUMENT ID: [id number] MARKY GUY MD at 1517 CC: [id number] DICTATION DATE: 05/24/19 1019 WATER POLLUTION CONTROL TECHNICIAN: 05/24/19 1142 ADM [id number] [place] [address]
--- NOTE | 2019-05-25 16:59 | NUR ---
OT NOTE: PT COMPLETED ADL MOB WITH SBA/CGA. PT COMPLETED BED MOB TASKS WITH CGA. PT TOILETING WITH SBA. THANK YOU, JOSE DIEHL
--- NOTE | 2019-05-26 07:19 | MORECARE ---
CASE MANAGEMENT DISCHARGE SUMMARY PATIENT: PADMINI CHAVEZ UNIT: [id number] ADM DATE: 05/23/19 AGE: 53 : [birth year] SEX: F ROOM/BED: D.6530 AUTHOR: GREY,DOC PHYSICIAN: REFERRING PHYSICIAN: EZEKIEL RUIZ MD DATE OF SERVICE: 05/26/19 Discharge Plan Patient Name: PADMINI CHAVEZ Facility: [facility]:[place] : 1965 Planned Disposition: Home Anticipated Discharge Date: 05/25/19 Discharge Date: 05/25/2019 Expected LOS: 2 Initial Reviewer: [email or web address] Initial Review Date: 05/24/2019 Generated: 05/26/19 8:18 am Comments DCP- Discharge Planning Updated by [email or web address]: Nikolai Eugene on 05/24/19 4:[address] Patient Name: PADMINI CHAVEZ Admission Status: ER Accout number: [id number] Admission Date: 05-23-2019 : 1965 Admission Diagnosis: Attending: EZEKIEL RUIZ Current LOS: 1 Anticipated DC Date: 05-24-2019 Planned Disposition: Home Primary Insurance: [employer] OUT OF STATE Discharge Planning Comments: CM MET WITH PT IN ROOM TO DISCUSS DISCHARGE PLANNING AND NEEDS. PT REPORTS LIVING AT HOME INDEPENDENTLY WITH HER MOTHER IN [place]. PT HAD BOUGHT PLANE TICKETS IN [place] TO COME AND VISIT HER DAUGHTER; PT HAD RECEIVED CALL FROM DOCTOR TELLING HER SHE HAD A BLOOD CLOT IN HER LUNG AND NEEDED TO NOT TRAVEL AND GO TO NEAREST EMERGENCY ROOM. PT LEFT ANYWAY; PT STATES THAT HER DOCTOR WAS TRYING TO GET THE POLICE TO TAKE A 72 HOUR HOLD BEFORE SHE LEFT BUT IT WAS TOO LATE. PT TOLD HER MOTHER SHE WOULD GO TO THE HOSPITAL HERE AND THAT IS WHAT SHE DID. PT HASNEBULIZER, CPAP AND PNEUMATIC LEG COMPRESSION DEVICE. PT HAS HOME HEALTH IN [place] FOR LEG COMPRESSION THERAPY. PT DENIES DISCHARGE NEEDS, REPORTS HER DAUGHTER WILL PICK HER UP FOR DISCHARGE HOME. PT WILL BE STAYING WITH HER DAUGHTER UNTIL 06-02-19 AND WILL FLY HOME THEN. CM TO CONTINUE TO FOLLOW AND ASSIST NEEDED. Jet Ski Mechanic: Nikolai Eugene DCPIA - Discharge Planning Initial Assessment Updated by [id number]: Nikolai Eugene on 05/24/19 5:01 pm * Is the patient Alert and Oriented? Yes * How many steps to enter\exit or inside your home? * PCP DR. ROXANA RAMEY IN [place], [place] * Pharmacy [facility] * Preadmission Environment Home with Family * ADLs Independent * Equipment CPAP Nebulizer Other * Other Equipment PNEUMATIC LEG COMPRESSION DEVICE NO MEDICAL EQUIPMENT PROVIDER PREFERENCE * List name and contact numbers for known caregivers / representatives who currently or will assist patient after discharge: LARRY DUARTE, DTR,[phone] * Verbal permission to speak to the caregivers and representatives has been obtained from the patient. N/A * Community resources currently utilized Home Health * Please name any agencies selected above. [facility], IN [place] - FOR ASSISTANCE WITH LEG COMPRESSION * Additional services required to return to the preadmission environment? No * Can the patient safely return to the preadmission environment? Yes * Has this patient been hospitalized within the prior 30 days at any hospital? No Last DP export: 05/24/19 4:12 Patient Name: PADMINI CHAVEZ Page [id number] at 0719 All edits/amendments must be made on the electronic document DICTATION DATE: 05/26/19717 DRY CLEANING ATTENDANT: RENETTA 05/26/19717 RPT#: [id number] DC DATE:05/25/19 STATUS: DIS IN [facility] [address] [place] [address] END OF REPORT
[2019-05-26 10:11] LABS: HAPTOGLOBIN 50 mg/dL (34-200)
[2019-05-26 14:09] LABS: ACLA - IGG AB <9 GPL U/mL (0-14); ACLA - IGM AB 20 MPL U/mL (0-12)
[2019-05-27 12:09] LABS: LUPUS - INTERPRETATION Comment: (()); LUPUS - THROMBIN TIME 20.2 sec (0.0-23.0); LUPUS - dRVVT 42.4 sec (0.0-47.0); PTT-LA 49.1 sec (0.0-51.9)
--- NOTE | 2019-05-27 12:59 | CN ---
PATIENT NAME:PADMINI CHAVEZ MEDICAL RECORD: [id number] : 67 LOCATION:. 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 She was already here and then presented to our ER, has a markedly elevated BNP. Troponins elevated as well. We are asked to see her concerning her cardiovascular status. Reports symptomatology has been going on for about a month, much more severe with a recent LV stress and anxiety, probably class III symptoms, chest tightness, pressure. PAST MEDICAL HISTORY: Includes: 1. History of obstructive pulmonary disease. 2. Hypertension. MEDICATIONS: Include albuterol b.i.d., carvedilol 3.125 every day, Aldactone 50 mg p.o. every day, HCTZ 50 every day. ALLERGIES: PENICILLIN AND CODEINE. SOCIAL HISTORY: Smokes about a pack a day, nondrinker. Social marijuana use, previous history of meth use, none currently. No set exercise program. REVIEW OF SYSTEMS: The patient reports easy bruising but reports no swollen glands. The patient reports no fever, no night sweats, no significant weight gain, no significant weight loss. No significant exercise tolerance. The patient reports no dry eyes, no irritation, no vision change. Patient reports no difficulty hearing and no ear pain. Patient reports no frequent nose bleeds or nose and sinus problems. Patient reports on arm pain on exertion. No shortness of breath while lying down. No history of heart murmur. Patient reports no cough, no wheezing or coughing up blood. Patient reports no abdominal pain, no vomiting. Normal appetite. No diarrhea and not vomiting blood. No nausea and no constipation. Patient reports no incontinence. No difficulty urinating. No hematuria. No increased frequency. Patient reports no muscle aches. No weakness, no arthralgias, no back pain. No swelling of the extremities. Patient reports no abnormal mole, no jaundice, no rashes. Reports no loss of consciousness. No weakness and no numbness. No seizures, dizziness, or headaches. The patient reports no depression, no sleep disturbance, feeling safe in a relationship and no alcohol abuse. Patient reports on fatigue. Reports no runny nose or sinus pressure. No itching, no hives, and no frequent sneezing. PHYSICAL EXAMINATION: GENERAL: Pleasant female in no acute distress, appears stated age. VITAL SIGNS: Blood pressure 163/55, pulse 96 and regular. HEENT: Normocephalic, atraumatic. NECK: No JVD or bruit. HEART: Regular. S3 gallop is noted, a II/ systolic ejection murmur. CONSULT REPORT [id number] PADMINI CHAVEZ LUNGS: Good air excursion. ABDOMEN: Soft, nontender. EXTREMITIES: Pulses 2+. There is 2+ edema. IMPRESSION: Echocardiographic study shows decreased LV function with EF at 30%, nonpreliminary. IMPRESSION: New onset cardiomyopathy. Given the elevated troponin, etc., will need diagnostic angiography to see if this a type 1 versus type 2 NSTEMI. In the interim, we will consider adding Entresto to current medications. Further recommendations based on the above. TRANSINT:[id number] Voice Confirmation ID: [id number] DOCUMENT ID: [id number] MARKY GUY MD at 1259 CC: [id number] DICTATION DATE: 05/27/19910 TOOL/DIE MAKER: 05/27/19 1117 DIS IN 05/25/[id number] [place] [address]
[2019-05-28 12:09] LABS: PROTEIN S - FREE 100 % (57-157); PROTEIN S - FUNCTIONAL 49 % (63-140); PROTEIN S - TOTAL 72 % (60-150)
[2019-05-28 15:09] LABS: PROTEIN S - FREE 93 % (57-157); PROTEIN S - TOTAL 73 % (60-150)
[2019-05-30 12:08] LABS: PROTEIN C - ANTIGEN 52 % (60-150); PROTEIN C - FUNCTIONAL 56 % (73-180)
[2019-06-01 19:08] LABS: FACTOR II DNA ANALYSIS Negative (())
[2019-06-30 16:00] VITALS: Ht 172.7 cm; Wt 98.9 kg
== END 2019-05-25 16:44 | disposition home or self-care (01) | DRG 286 ==
LOC: D.ER 12:11 → D.M2 16:14 → OBSVTIME 16:36 → D.M2 19:04
PROVIDERS: Family Medicine; Internal Medicine Hematology & Oncology; Internal Medicine Interventional Cardiology; ADMIT Internal Medicine Nephrology; ATTEND Internal Medicine Nephrology
PROC: B2151ZZ Fluoroscopy of Left Heart using Low Osmolar Contrast (ICD-10-PCS; 2019-05-24)
PROC: 4A023N7 Measurement of Cardiac Sampling and Pressure, Left Heart, Percutaneous Approach (ICD-10-PCS; 2019-05-24)
PROC: B2111ZZ Fluoroscopy of Multiple Coronary Arteries using Low Osmolar Contrast (ICD-10-PCS; principal; 2019-05-24 09:27)
DX: I11.0 Hypertensive heart disease with heart failure (principal); I50.21 Acute systolic (congestive) heart failure; J44.1 Chronic obstructive pulmonary disease with (acute) exacerbation; F17.213 Nicotine dependence, cigarettes, with withdrawal; I42.9 Cardiomyopathy, unspecified; F15.90 Other stimulant use, unspecified, uncomplicated; F12.90 Cannabis use, unspecified, uncomplicated; F41.8 Other specified anxiety disorders